=== PATIENT | female | born 1985 | race Two or more races ===

== ENCOUNTER 2021-03-27 04:36 | Emergency (ER) | payer MEDICARE, MEDICAID ==
[~2021-03-27] VITALS: Ht 157.5 cm; Wt 72.6 kg
[2021-03-27] MEDS ORDERED: ACETAMINOPHEN 325 MG TAB PO ONE (07:30)
[2021-03-27] MEDS ORDERED: SODIUM CHLORIDE 0.9% 1,000 ML IV ONE (07:30)
[2021-03-27] MEDS ORDERED: FAMOTIDINE (10MG/ML) 2ML VL IV ONE (07:30)
[2021-03-27] MEDS ORDERED: METOCLOPRAMIDE HCL 5MG/ml INJ 2ml VIAL IV ONE (07:30)
[2021-03-27 07:58] LABS: Basophils # (auto) 0 10 ^3/uL (0-0.2); Basophils % (auto) 0.1 % (0.0-2.0); Eosinophils # (auto) 0.2 10 ^3/uL (0-0.8); Eosinophils % (auto) 1.6 % (0.0-7.0); Hematocrit 33.5 % (36.0-46.0); Hemoglobin 10.9 g/dL (12.2-16.2); Lymphocytes # (auto) 1.1 10 ^3/uL (0.4-5.4); Lymphocytes % (auto) 8.2 % (10.0-50.0); Mean Corpuscular Hemoglobin 28.6 pg (28.0-32.0); Mean Corpuscular Hgb Conc. 32.5 g/dL (32.0-36.0); Mean Corpuscular Volume 87.8 fL (80.0-100.0); Monocytes # (auto) 1.1 10 ^3/uL (0-1.3); Monocytes % (auto) 8.4 % (0.0-12.0); Neutrophils # (auto) 10.9 10 ^3/uL (1.6-8.6); Neutrophils % (auto) 81.7 % (37.0-80.0); Red Blood Cells 3.82 10^6/uL (4.0-5.20); Red Cell Distribution Width 16.5 % (11.8-14.3); White Blood Cell 13.4 10^3/uL (4.4-10.8)
[2021-03-27 08:09] LABS: Potassium 3.9 mmol/L (3.5-5.1)
[2021-03-27 08:18] LABS: Albumin 3.2 g/dL (3.4-5.0); BUN/Creatinine Ratio 2.6; Bilirubin, Total 0.4 mg/dL (0.2-1.0); Calcium 8.6 mg/dL (8.5-10.1); Magnesium 3.3 mg/dL (1.6-2.6); Total Protein 7.4 g/dL (6.4-8.2)
[2021-03-27 08:37] LABS: Urine Bacteria FEW /hpf (None Seen); Urine Blood Negative /uL (Negative); Urine Specific Gravity 1.011 (1.001-1.035); Urine WBC 44 /hpf (0 - 5)
[2021-03-27] MEDS ORDERED: cefTRIAXone 1GM/50ML D5W 50 ML IV ONE (09:00)
[2021-03-27 12:00] VITALS: BP 154/94
== END 2021-03-27 14:32 | disposition home or self-care (01) ==
LOC: ER 04:36 → EDBD 04:36 → ER 14:32
DX: N39.0 Urinary tract infection, site not specified (principal); R11.2 Nausea with vomiting, unspecified; E11.22 Type 2 diabetes mellitus with diabetic chronic kidney disease; N18.9 Chronic kidney disease, unspecified
CPT/HCPCS: 36415; 74176; 80053; 81001; 83605; 83690; 83735; 84702; 85025; 87086; 96365; 96375; 99284; J0696; J2765; J3490; J7030